=== PATIENT | male | born 1995 | race African-American/Black ===

== ENCOUNTER 2020-10-17 11:53 | Emergency (ER) | payer OTHER ==
[~2020-10-17] VITALS: Ht 185.4 cm; Wt 90.7 kg
--- NOTE | 2020-10-17 14:26 | REP ---
INDICATION: left ring finger injury/decreased vascular ultrasound technician strength COMPARISON: None. TECHNIQUE: Four views left hand. FINDINGS: There is no evidence of acute fracture, dislocation, or intrinsic bone disease. IMPRESSION: No fracture or dislocation. <Electronically signed by Indio Lundy > 10/17/20 [id number]
[2020-10-17 17:34] VITALS: BP 150/90
== END 2020-10-17 17:43 | disposition home or self-care (01) ==
LOC: M ED 11:53
DX: S63.635A Sprain of interphalangeal joint of left ring finger, initial encounter (principal); R03.0 Elevated blood-pressure reading, without diagnosis of hypertension; W23.1XXA Caught, crushed, jammed, or pinched between stationary objects, initial encounter; Y92.89 Other specified places as the place of occurrence of the external cause; Y93.62 Activity, american flag or touch football; Y99.1 Military activity

== ENCOUNTER 2020-10-23 01:44 | Emergency (ER) | payer OTHER ==
[~2020-10-23] VITALS: Ht 185.4 cm; Wt 88.0 kg
[2020-10-23 01:45] VITALS: BP 160/90
== END 2020-10-23 02:55 | disposition left against medical advice (07) ==
LOC: M ED 01:44
DX: Z53.29 Procedure and treatment not carried out because of patient's decision for other reasons (principal)

== ENCOUNTER 2020-10-24 10:18 | Inpatient (IN) | payer OTHER ==
[~2020-10-24] VITALS: Ht 185.4 cm; Wt 87.3 kg
[2020-10-24 08:45] VITALS: BP 127/44
[2020-10-24 09:45] VITALS: BP 131/76
--- NOTE | 2020-10-24 13:26 | REP ---
INDICATION: abdominal pain/possible constipation. COMPARISON: None. TECHNIQUE: Supine views the abdomen, two views. KUB. FINDINGS: Supine views the abdomen demonstrate a moderate ileus pattern in the bowel gas with air-filled dilated loops of large and small bowel throughout the upper abdomen. In addition, there is a 1.5 cm calcification in the right mid abdomen surrounded by soft tissue density. This may reflect an enterolith such as appendicular lith with appendicitis, granulomatous lymph node calcification, or a very large ureteral stone. Lastly there is the suggestion of minimal ascites. No organomegaly seen. No other pathologic calcification noted. IMPRESSION: Moderate acute ileus pattern in the bowel gas. 1.5 cm calcification in the right mid abdomen surrounded by mass effect. Suggestion of mild ascites. Acute appendicitis versus large ureteral stone versus mesenteric everardo calcification. Recommend CT study abdomen and pelvis, preferably with IV contrast. <Electronically signed by Liam Green > 10/24/20 [id number]
[2020-10-24] MEDS ORDERED: NS 1,000 ML IV ONE (13:35)
[2020-10-24 14:07] LABS: HEMATOCRIT 41.1 % (42.0-52.0); HEMOGLOBIN 13.3 g/dl (13.5-17.5); MEAN CORPUSCULAR HEMOGLOBIN 27.5 pg (27.0-33.0); MEAN CORPUSCULAR HGB CONC 32.4 g/dl (32.0-36.5); MEAN CORPUSCULAR VOLUME 85.1 fl (80.0-96.0); PLATELET COUNT, AUTOMATED 337 10^3/uL (150-450); RED BLOOD COUNT 4.83 10^6/uL (4.30-6.10); WHITE BLOOD COUNT 15.8 10^3/uL (4.0-10.0)
[2020-10-24] MEDS: GASTROGRAFIN SOLUTION 30ML PO SCH ×2 (14:24→15:00)
[2020-10-24 14:38] LABS: ATYPICAL LYMPH 1 % (0-5); LYMPHOCYTES 11 % (16-44); MONOCYTES 13 % (0-5); NEUTROPHILS 65 % (28-66); PLATELET ESTIMATE NORMAL (NORMAL)
[2020-10-24 14:39] LABS: ALBUMIN 3.1 GM/DL (3.2-5.2); ALT/SGPT 38 U/L (12-78); BILIRUBIN,DIRECT 0.1 MG/DL (0.0-0.2); BILIRUBIN,TOTAL 0.5 MG/DL (0.2-1.0); LIPASE 79 U/L (73-393); TOTAL PROTEIN 8.6 GM/DL (6.4-8.2)
[2020-10-24 15:15] LABS: BLOOD UREA NITROGEN 17 MG/DL (7-18); CALCIUM LEVEL 9.8 MG/DL (8.5-10.1); CARBON DIOXIDE LEVEL 31 MEQ/L (21-32); CHLORIDE LEVEL 95 MEQ/L (98-107); GLOMERULAR FILTRATION RATE > 60.0 (>60); GLUCOSE, FASTING 100 MG/DL (70-100); POTASSIUM SERUM 3.7 MEQ/L (3.5-5.1); SODIUM LEVEL 132 MEQ/L (136-145)
[2020-10-24] MEDS ORDERED: ISOVUE-370 76% 100ML VIAL As Ordered ONE (15:28)
--- NOTE | 2020-10-24 15:54 | REP ---
INDICATION: KUB /possible appendicitis/ileus/stone. COMPARISON: Comparison is made with abdominal plain films from earlier on this same date. TECHNIQUE: Oral contrast is administered. Helical scanning is acquired following the intravenous injection of 100 mL of Isovue 370. FINDINGS: Preliminary digital radio operator ground radiograph again demonstrates a moderate to marked diffuse abdominal ileus. On axial images, the lung bases are clear. There is no evidence of pleural effusion or upper abdominal ascites in the upper abdomen. The liver and the spleen are normal in size homogeneous in texture. No abnormality is noted in the gallbladder or the pancreas. Normal adrenal glands are seen. There is minimal delay in the nephrogram phase of the right kidney and there is mild right-sided hydronephrosis and hydroureter. Dilated small and large bowel loops are noted throughout the abdomen. There is inflammatory change in the lower small bowel mesenteric fat and there is a appendiceal abscess in the central lower abdomen. There is a large calcified appendicular lith just medial to the cecum and dilated tubular appendiceal lumen is seen coursing horizontally from right to left into the central abdomen. Above this is the appendiceal abscess. The abscess cavity contains air and fluid and measures 4.8 cm anteroposterior by 6.4 cm right to left by 3.7 cm cranial to caudal. No other abscess is seen. There is a tiny sliver of right pericolic gutter fluid. No free air is seen. The Megha appendiceal abscess is not a drainable by image guided catheter technique. It is central and surrounded by bowel. IMPRESSION: Acute appendicitis with 6.4 cm central abdominal appendiceal abscess. There is a large appendicular lith. No free air. There is moderate to marked diffuse ileus. There is mild right-sided hydronephrosis and obstructive nephrogram on the right. The right ureter is presumed to be compressed by the central abdominopelvic abscess. <Electronically signed by Liam Green > 10/24/20 [id number]
[2020-10-24] MEDS ORDERED: PIPERACILLIN/TAZOBACTAM SOD 3.375 GM in D5W MINI-BAG PLUS 50 ML IV ONE (16:25)
[2020-10-24] MEDS ORDERED: KETOROLAC 30 MG/ML 1ML VIAL IV ONE (16:45)
[2020-10-24] MEDS ORDERED: BUPIVACAINE/EPIN 0.25% 30 ML VIAL As Ordered ONE (16:58)
[2020-10-24] MEDS ORDERED: MIDAZOLAM INJ 2MG/2ML VIAL (J2250 PER 1MG) As Ordered ONE (18:07)
[2020-10-24] MEDS ORDERED: KETOROLAC 60MG 2ML VIAL As Ordered ONE (18:07)
[2020-10-24] MEDS ORDERED: fentaNYL 250 MCG/5 ML INJECTION (J3010) As Ordered ONE (18:07)
[2020-10-24] MEDS ORDERED: dexameTHASONE 4 MG/ML 1ML VIAL (J1100 PER 1MG) As Ordered ONE (18:07)
[2020-10-24] MEDS ORDERED: propofoL 200 MG/20 ML VIAL As Ordered ONE (18:07)
[2020-10-24] MEDS ORDERED: ROCURONIUM BROMIDE 50 MG/5 ML VIAL As Ordered ONE (18:07)
[2020-10-24] MEDS ORDERED: SUGAMMADEX SODIUM 500 MG/5 ML VIAL (BRIDION) As Ordered ONE (18:07)
[2020-10-24] MEDS ORDERED: LIDOCAINE 2% 100MG/5ML SDV (FOR ANES.) As Ordered ONE (18:07)
[2020-10-24] MEDS ORDERED: ONDANSETRON 4MG/2ML VIAL As Ordered ONE (18:07)
[2020-10-24] MEDS ORDERED: SUCCINYLCHOLINE 100 MG/5 ML SYRINGE (J0330) As Ordered ONE (18:15)
[2020-10-24] MEDS ORDERED: ESMOLOL INJ 100MG/10ML VIAL As Ordered ONE (18:26)
[2020-10-24] MEDS ORDERED: NORCO, ANEXSIA 5/325MG TABLET (HYDROcodone/ACETAMINOPHEN) PO PRN (18:50)
--- NOTE | 2020-10-24 19:08 | HPE ---
HISTORY AND PHYSICAL DATE OF ADMISSION: 10/24/2020 CHIEF COMPLAINT: Abdominal pain. HISTORY OF PRESENT ILLNESS: The patient is a 25-year-old male who presented with periumbilical and right upper quadrant abdominal pain that started last Friday. He thought he was constipated. He tried laxatives with minimal results. Pain has been persistent since then. He has had slight nausea, no emesis. No fevers or chills. No other recent changes. CT in the emergency room was positive for a perforated appendix with an abscess; however, the abscess was unable to be reached with percutaneous drainage; therefore, I was asked to evaluate him for surgery. Currently, in the emergency room, he just spiked a fever of 101, otherwise he has not had one prior. No prior abdominal surgeries. No trauma to the area. No other complaints. PAST MEDICAL HISTORY: Negative. PAST SURGICAL HISTORY: Negative. ALLERGIES: None. HOME MEDICATIONS: None. SOCIAL HISTORY: Denies drugs, alcohol or tobacco abuse. FAMILY HISTORY: Noncontributory. REVIEW OF SYSTEMS: Pertinent positives and negatives as stated in the history of present illness. PHYSICAL EXAMINATION: General: Alert and oriented x3, in no acute distress. Vitas: Temperature 101.5, pulse 92, respirations 18, blood pressure 166/89, pulse oximetry 100% on room air. HEENT: Pupils equal, round and reactive to light and accommodation. Heart: S1, S2, regular rate and rhythm. Lungs: Clear to auscultation bilaterally. Abdomen: Soft, tender to palpation, mainly periumbilically. Diffuse abdominal distension. No rigidity. Extremities: No clubbing, cyanosis or edema. LABORATORY: White count 15.8, hemoglobin 13.3, platelets 337, potassium 3.7, creatinine 1.3, lactic acid 0.9, C-reactive protein 21.3. IMAGING: CT abdomen and pelvis showed acute appendicitis with a 6.4 cm central abdominal abscess. Large appendicolith. No free air. Moderate diffuse ileus. ASSESSMENT AND PLAN: The patient is a young 25-year-old male currently with an acute perforated appendicitis that is not amenable to drainage by IR due to location behind some bowel loops. Recommendation is to take him to the operating room for abdominal washout, drain placement and possible appendicectomy. Risks and benefits of procedure were not limited to, but including bleeding, infection, herniated, damage to surrounding structures, need for further surgery were discussed in detail with the patient. Informed consent was obtained and procedure is planned. Postoperatively, he will be kept overnight at minimum with IV fluids and antibiotics. Once he is afebrile for 24 hours and pain and labs have improved, he will be able to be discharged home.
[2020-10-24] MEDS: ONDANSETRON 4MG/2ML VIAL IV PRN (19:24)
[2020-10-24] MEDS ORDERED: fentaNYL 100 MCG/2 ML INJECTION (J3010) IV PRN (19:50)
[2020-10-24] MEDS ORDERED: HYDROMORPHONE HCL 0.5 MG/ 0.5 ML SYRINGE (J1170 PER 1) IV PRN (19:50)
[2020-10-24] MEDS ORDERED: ONDANSETRON 4MG/2ML VIAL IV PRN (19:50)
[2020-10-24] MEDS ORDERED: oxyCODONE 5MG TAB PO PRN (19:50)
[2020-10-24] MEDS ORDERED: LR 1,000 ML IV SCH (19:50)
[2020-10-24 20:10] VITALS: BP 127/74
[2020-10-24 20:45] VITALS: BP 127/74
[2020-10-24 21:45] VITALS: BP 131/76
[2020-10-24] MEDS: SENOKOT S TAB PO SCH (22:42)
[2020-10-24] MEDS: PIPERACILLIN/TAZOBACTAM SOD 3.375 GM in D5W MINI-BAG PLUS 50 ML IV SCH (22:42)
[2020-10-24] MEDS: NS 1,000 ML IV SCH (22:43)
[2020-10-24] MEDS: KETOROLAC 30 MG/ML 1ML VIAL IV PRN (22:57)
[2020-10-24 23:00] VITALS: BP 130/76
[2020-10-25] VITALS (7 sets, daily range): BP systolic 126–149; BP diastolic 42–90
[2020-10-25] MEDS: NORCO, ANEXSIA 5/325MG TABLET (HYDROcodone/ACETAMINOPHEN) PO PRN (03:25)
[2020-10-25] MEDS: ONDANSETRON 4MG/2ML VIAL IV PRN ×2 (04:19→16:25)
[2020-10-25] MEDS: PIPERACILLIN/TAZOBACTAM SOD 3.375 GM in D5W MINI-BAG PLUS 50 ML IV SCH ×4 (05:28→22:08)
[2020-10-25] MEDS: NS 1,000 ML IV SCH ×4 (05:28→23:37)
[2020-10-25 06:13] LABS: HEMATOCRIT 38.1 % (42.0-52.0); HEMOGLOBIN 12.3 g/dl (13.5-17.5); MEAN CORPUSCULAR HEMOGLOBIN 27.2 pg (27.0-33.0); MEAN CORPUSCULAR HGB CONC 32.3 g/dl (32.0-36.5); MEAN CORPUSCULAR VOLUME 84.1 fl (80.0-96.0); PLATELET COUNT, AUTOMATED 345 10^3/uL (150-450); RED BLOOD COUNT 4.53 10^6/uL (4.30-6.10); WHITE BLOOD COUNT 13.2 10^3/uL (4.0-10.0)
[2020-10-25 06:49] LABS: BLOOD UREA NITROGEN 17 MG/DL (7-18); CALCIUM LEVEL 9.1 MG/DL (8.5-10.1); CARBON DIOXIDE LEVEL 30 MEQ/L (21-32); CHLORIDE LEVEL 99 MEQ/L (98-107); CREATININE FOR GFR 1.29 MG/DL (0.70-1.30); GLOMERULAR FILTRATION RATE > 60.0 (>60); GLUCOSE, FASTING 139 MG/DL (70-100); POTASSIUM SERUM 4.6 MEQ/L (3.5-5.1); SODIUM LEVEL 134 MEQ/L (136-145)
[2020-10-25] MEDS: SENOKOT S TAB PO SCH ×2 (09:02→22:08)
--- NOTE | 2020-10-25 12:27 | REP ---
INDICATION: NG placement. COMPARISON: None. TECHNIQUE: Single portable AP view of the chest was performed. FINDINGS: There is no acute infiltrate or pulmonary edema. Lungs are clear. The heart is not significantly enlarged. The mediastinal silhouette is unremarkable. The visualized osseous structures are intact.There is a nasogastric tube, the side port is just above the gastroesophageal junction. The tube should be advanced. The stomach is moderately dilated with air and fluid and there are adjacent mildly dilated small bowel loops. IMPRESSION: No acute pulmonary disease.There is a nasogastric tube, the side port is just above the gastroesophageal junction. The tube should be advanced. <Electronically signed by Indio Lundy > 10/25/20 [id number]
--- NOTE | 2020-10-25 13:04 | IPNPDOC ---
Text Note Date of Service The patient was seen on 10/25/20. NOTE General surgery. Dr. Mohamud The patient is a 25-year-old male admitted with acute perforated appendicitis status post laparoscopic appendectomy with drain placement 10/24/[address] Mohamud. This morning, the patient was noted to have some abdominal distention, postoperative ileus. The patient was made n.p.o., NG tube to LIS requested. Currently, the patient is resting comfortably in bed. Afebrile. Heart rate 88, respiratory rate 18, blood pressure 132/83, 95% room air. Awake and alert sitting up in bed, no acute distress S1-S2 regular rate rhythm Lungs clear to auscultation Abdomen soft, distention noted, drainage tube in place with serosanguineous drainage noted. Extremities with no edema WBC 13.2, this is compared with 15.8 yesterday. Hemoglobin 12.3 Assessment/plan Acute perforated appendicitis status post laparoscopic appendectomy with drain placement 10/24/[address] Mohamud. The patient is reviewed and examined as per Dr. Mohamud this morning. The patient is noted to have postoperative ileus. The patient is NPO, NG tube to LIS requested. Afebrile WBC 13.2 which is decreased compared with yesterday IV Zosyn IV fluids 125 cc/hr Drain in place with 180 mL drainage noted yesterday. Continue to closely monitor. VS,Fishbone, I+O VS, Fishbone, I+O Laboratory Tests 10/24/20 13:29 10/25/20 05:53 Vital Signs Date Time Temp Pulse Resp B/P (MAP) Pulse Ox O2 Delivery O2 Flow Rate FiO2 10/25/20 10:00 98.5 88 18 132/83 (99) 95 10/25/20 04:00 1.0 10/25/20 03:55 Nasal Cannula I&O- Last 24 Hours up to 6 AM 10/25/20 05:59 Intake Total 2610 ml Output Total 2112 ml Balance 498 ml Diana Macias Oct 25, 2020 13:04
[2020-10-25] MEDS: KETOROLAC 30 MG/ML 1ML VIAL IV PRN ×2 (16:26→23:47)
[2020-10-26] MEDS: PIPERACILLIN/TAZOBACTAM SOD 3.375 GM in D5W MINI-BAG PLUS 50 ML IV SCH ×4 (04:31→21:55)
[2020-10-26 06:00] VITALS: BP 136/82
[2020-10-26] MEDS: SENOKOT S TAB PO SCH ×2 (09:09→21:55)
[2020-10-26] MEDS: NS 1,000 ML IV SCH ×3 (09:09→22:05)
[2020-10-26 09:10] LABS: HEMATOCRIT 37.5 % (42.0-52.0); HEMOGLOBIN 11.9 g/dl (13.5-17.5); MEAN CORPUSCULAR HEMOGLOBIN 27.4 pg (27.0-33.0); MEAN CORPUSCULAR HGB CONC 31.7 g/dl (32.0-36.5); MEAN CORPUSCULAR VOLUME 86.4 fl (80.0-96.0); PLATELET COUNT, AUTOMATED 406 10^3/uL (150-450); RED BLOOD COUNT 4.34 10^6/uL (4.30-6.10); WHITE BLOOD COUNT 15.2 10^3/uL (4.0-10.0)
--- NOTE | 2020-10-26 09:18 | IPNPDOC ---
Text Note Date of Service The patient was seen on 10/26/20. NOTE General surgery. Dr. Mohamud The patient is a 25-year-old male admitted with acute perforated appendicitis status post laparoscopic appendectomy with drain placement 10/24/[address] Mohamud. The patient was noted to have postoperative ileus 10/25, NG tube was placed. This morning, the patient reports abdominal bloating and distention is much improved. States he has had a bowel movement. Reports flatus. Overall reports he is feeling much better. Afebrile Heart rate 87, respiratory rate 19, blood pressure 136/82, 97% room air Lungs are clear to auscultation S1-S2 regular rate rhythm Abdomen soft, still distended but less pronounced today. Some mild tenderness noted around drain site only. Drain site intact with cloudy drainage noted. 220 mL output yesterday. WBC 15.2, this is increased from 13.2 yesterday. Hemoglobin 11.9. BMP this morning pending. Blood culture x2 negative. Assessment/plan Acute perforated appendicitis status post laparoscopic appendectomy with drain placement 10/24/[address] Mohamud. The patient is reviewed and examined as per Dr. Mohamud this morning. The patient is noted to have postoperative ileus. Continue NPO, NG tube. Will check abdominal x-ray to reevaluate. Afebrile. WBC is noted to be 15.2, this is slightly increased compared with yesterday. IV Zosyn IV fluids at 125 cc/h. Drain in place with 220 mL output yesterday. Continue to monitor closely, further recommendations pending review of imaging. VS,Fishbone, I+O VS, Fishbone, I+O Laboratory Tests 10/26/20 08:48 Vital Signs Date Time Temp Pulse Resp B/P (MAP) Pulse Ox O2 Delivery O2 Flow Rate FiO2 10/26/20 06:00 98.1 87 19 136/82 (100) 97 Room Air 10/25/20 04:00 1.0 I&O- Last 24 Hours up to 6 AM 10/26/20 06:00 Intake Total 1740 ml Output Total 2240 ml Balance -500 ml Diana Macias Oct 26, 2020 09:18
[2020-10-26] MEDS: KETOROLAC 30 MG/ML 1ML VIAL IV PRN ×2 (09:23→19:05)
[2020-10-26] MEDS: ONDANSETRON 4MG/2ML VIAL IV PRN (09:24)
[2020-10-26] MEDS: NORCO, ANEXSIA 5/325MG TABLET (HYDROcodone/ACETAMINOPHEN) PO PRN (09:27)
[2020-10-26 09:45] LABS: BLOOD UREA NITROGEN 21 MG/DL (7-18); CALCIUM LEVEL 8.8 MG/DL (8.5-10.1); CARBON DIOXIDE LEVEL 31 MEQ/L (21-32); CHLORIDE LEVEL 101 MEQ/L (98-107); CREATININE FOR GFR 1.16 MG/DL (0.70-1.30); GLOMERULAR FILTRATION RATE > 60.0 (>60); GLUCOSE, FASTING 109 MG/DL (70-100); POTASSIUM SERUM 3.6 MEQ/L (3.5-5.1); SODIUM LEVEL 137 MEQ/L (136-145)
--- NOTE | 2020-10-26 10:09 | REP ---
INDICATION: ileus?. COMPARISON: Frontal view of the chest 10/25/2020 TECHNIQUE: Supine and upright views of the abdomen with frontal view of the chest FINDINGS: The frontal view the chest is unchanged from the prior exam with the exception of advancement of the nasogastric tube which is now in the region of the stomach fundus. The lung barron are clear and the pleural angles are sharp. Multiple dilated gas and fluid-filled small bowel loops are seen in the abdomen and in a stepladder fashion on the upright view. There is no evidence of free air. A small amount of radiographic contrast is seen in the descending colon. A surgical drainage tube is seen on the right. IMPRESSION: SBO versus ileus follow-up is recommended. <Electronically signed by Yogesh Chicas > 10/26/20 [id number]
[2020-10-26 14:00] VITALS: BP 137/79
[2020-10-26 21:55] VITALS: BP 136/78
[2020-10-27] MEDS: PIPERACILLIN/TAZOBACTAM SOD 3.375 GM in D5W MINI-BAG PLUS 50 ML IV SCH ×4 (04:23→22:43)
[2020-10-27] MEDS: KETOROLAC 30 MG/ML 1ML VIAL IV PRN ×3 (04:32→21:14)
[2020-10-27 05:52] VITALS: BP 137/78
[2020-10-27 07:28] LABS: HEMATOCRIT 36.8 % (42.0-52.0); HEMOGLOBIN 11.5 g/dl (13.5-17.5); MEAN CORPUSCULAR HEMOGLOBIN 27.3 pg (27.0-33.0); MEAN CORPUSCULAR HGB CONC 31.3 g/dl (32.0-36.5); MEAN CORPUSCULAR VOLUME 87.4 fl (80.0-96.0); PLATELET COUNT, AUTOMATED 453 10^3/uL (150-450); RED BLOOD COUNT 4.21 10^6/uL (4.30-6.10); WHITE BLOOD COUNT 14.8 10^3/uL (4.0-10.0)
[2020-10-27 07:54] LABS: BLOOD UREA NITROGEN 20 MG/DL (7-18); CARBON DIOXIDE LEVEL 32 MEQ/L (21-32); CHLORIDE LEVEL 102 MEQ/L (98-107); CREATININE FOR GFR 1.24 MG/DL (0.70-1.30); GLOMERULAR FILTRATION RATE > 60.0 (>60); GLUCOSE, FASTING 99 MG/DL (70-100); SODIUM LEVEL 139 MEQ/L (136-145)
--- NOTE | 2020-10-27 08:53 | IPNPDOC ---
Text Note Date of Service The patient was seen on 10/27/20. NOTE General surgery. Dr. Mohamud The patient is a 25-year-old male admitted with acute perforated appendicitis status post laparoscopic appendectomy with drain placement 10/24/[address] Mohamud. The patient was noted to have postoperative ileus 10/25, NG tube was placed. The dates he is still feeling bloated, no bowel movement reported yesterday. Patient states he is not passing flatus. Has not been out of bed yet today. Afebrile Heart rate 71, respiratory rate 20, blood pressure 137/78, 100% room air Lungs are clear to auscultation S1-S2 regular rate rhythm Abdomen soft, still with some distention. No tenderness noted. Drain site intact drainage is now clear, serous. Output not recorded yesterday. WBC 14.8, 15.2 yesterday. Hemoglobin 11.5. Blood culture x2 negative. Assessment/plan Acute perforated appendicitis status post laparoscopic appendectomy with drain placement 10/24/[address] Mohamud. The patient is noted to have postoperative ileus. Continue NPO, NG tube. Afebrile. WBC is noted to be 14.8, this is slightly increased compared with yes terday. IV Zosyn IV fluids at 125 cc/h. Drain in place with clear drainage noted now, output is not recorded yesterday Continue to monitor closely. Addendum. The patient is reviewed with Dr. Mohamud, the patient subsequently had large bowel movement this morning. Plan to clamp NG tube, trial of clear liquids. VS,Fishbone, I+O VS, Fishbone, I+O Laboratory Tests 10/27/20 07:04 Vital Signs Date Time Temp Pulse Resp B/P (MAP) Pulse Ox O2 Delivery O2 Flow Rate FiO2 10/27/20 05:52 97.0 71 20 137/78 (97) 100 Room Air 10/25/20 04:00 1.0 I&O- Last 24 Hours up to 6 AM 10/27/20 05:59 Intake Total 1565 ml Output Total 2900 ml Balance -1335 ml Diana Macias Oct 27, 2020 08:53
--- NOTE | 2020-10-27 08:55 | IPNPDOC ---
Text Note Date of Service The patient was seen on 10/27/20. NOTE No acute events overnight. He is tolerating the NG, and is still having BMS. His abd distention and pain are much improved. VSSAF NAD abd - soft, nd, NT, incisions c/d/i, drain with slightly cloudy fluid much less purulent than yesterday. labs - below A) 25y/o male s/p lap washout of perforated appendix with abscess and drain placement P) clamp NG clq diet amb in [place] plan on advancing diet and DC ng if he can tolerate diet until 5pm Ad Mohamud DO VS,Fishbone, I+O VS, Fishbone, I+O Laboratory Tests 10/27/20 07:04 Vital Signs Date Time Temp Pulse Resp B/P (MAP) Pulse Ox O2 Delivery O2 Flow Rate FiO2 10/27/20 05:52 97.0 71 20 137/78 (97) 100 Room Air 10/25/20 04:00 1.0 I&O- Last 24 Hours up to 6 AM 10/27/20 05:59 Intake Total 1565 ml Output Total 2900 ml Balance -1335 ml CORNELIUS MOHAMUD DO Oct 27, 2020 08:55
[2020-10-27] MEDS: NORCO, ANEXSIA 5/325MG TABLET (HYDROcodone/ACETAMINOPHEN) PO PRN ×2 (09:06→17:00)
[2020-10-27] MEDS: NS 1,000 ML IV SCH ×2 (09:07→15:50)
[2020-10-27] MEDS: SENOKOT S TAB PO SCH ×3 (09:07→21:01)
[2020-10-27 14:00] VITALS: BP 137/84
[2020-10-27 22:00] VITALS: BP 138/83
[2020-10-28] MEDS: PIPERACILLIN/TAZOBACTAM SOD 3.375 GM in D5W MINI-BAG PLUS 50 ML IV SCH ×4 (04:32→23:06)
[2020-10-28] MEDS: NS 1,000 ML IV SCH ×3 (05:29→15:05)
[2020-10-28 06:00] VITALS: BP 135/83
[2020-10-28] MEDS: SENOKOT S TAB PO SCH ×2 (07:34→21:08)
[2020-10-28] MEDS: KETOROLAC 30 MG/ML 1ML VIAL IV PRN ×2 (07:34→21:10)
[2020-10-28 10:08] LABS: HEMATOCRIT 38.1 % (42.0-52.0); HEMOGLOBIN 11.9 g/dl (13.5-17.5); MEAN CORPUSCULAR HEMOGLOBIN 27.2 pg (27.0-33.0); MEAN CORPUSCULAR HGB CONC 31.2 g/dl (32.0-36.5); PLATELET COUNT, AUTOMATED 485 10^3/uL (150-450); RED BLOOD COUNT 4.38 10^6/uL (4.30-6.10)
[2020-10-28 10:30] LABS: BLOOD UREA NITROGEN 13 MG/DL (7-18); CALCIUM LEVEL 9.1 MG/DL (8.5-10.1); CARBON DIOXIDE LEVEL 30 MEQ/L (21-32); CHLORIDE LEVEL 103 MEQ/L (98-107); CREATININE FOR GFR 1.14 MG/DL (0.70-1.30); GLOMERULAR FILTRATION RATE > 60.0 (>60); GLUCOSE, FASTING 103 MG/DL (70-100); POTASSIUM SERUM 3.5 MEQ/L (3.5-5.1); SODIUM LEVEL 137 MEQ/L (136-145)
[2020-10-28 14:00] VITALS: BP 135/82
[2020-10-28 22:00] VITALS: BP 139/82
--- NOTE | 2020-10-28 22:35 | IPN ---
PROGRESS NOTE DATE: 10/28/2020 HISTORY: The patient is a 25-year-old man who was admitted on the evening of the 24 of October with abdominal pain. CT scan revealed evidence for appendicitis with abscess. This was not felt to be amenable to percutaneous drainage, Dr. Mohamud took him to the [facility] where he underwent laparoscopy with placement of a drain. He has been continued on Zosyn for antibiotic coverage. He had some difficulty with an ileus but has not been advanced back to a regular diet as of last evening. He reports some discomfort in his right mid and lower abdomen in particular. He denies any nausea or vomiting currently. He has had some flatus. His abdomen remains somewhat distended. Vital signs show that he has been afebrile over the past 24 hours. His pulse is in the upper 70's to 80 and his blood pressure is good. His room air oxygen saturations are normal. Intake and output show that yesterday he had probably not the 13 liters that are recorded. I suspect this represents a typo. He had gastric drainage of 875 with 40 mL of drainage from his abdominal drain. PHYSICAL EXAMINATION: GENERAL APPEARANCE: A thin young man propped up in the bed. He is alert and oriented. HEART: Regular rate and rhythm and he is not tachycardic. LUNGS: Clear. ABDOMEN: Somewhat protuberant. He has some bowel sounds but these seem diminished. He has a drain exiting the lower mid abdomen. This has a small amount of serous fluid in the bottle with a small amount of turbid fluid in the tubing. He has another trocar site in the left upper abdomen. LABORATORY STUDIES: Today white count of 18,000 which is elevated from 15,000 yesterday. Hemoglobin is 12 with a hematocrit of 38 and the platelet count is 485,000. Chemistry profile shows a sodium of 137, potassium 3.5, chloride 103, CO2 of 30, BUN of 13, creatinine 1.1 and a glucose of 103. IMPRESSION: The patient overall appears to be doing somewhat better. His NG tube was removed last evening and he has tolerated a diet. He remains somewhat distended. His white count has gone up slightly today to 18,000 though he remains afebrile. PLAN: At this point I have decided to keep him in the hospital at least another day. His Zosyn will be continued. His labs will be repeated in the morning. If his white count continues to rise, then a repeat CT scan may be required to look for evidence of an undrained collection. MICHAEL
[2020-10-28] MEDS: ACETAMINOPHEN TAB 650MG DOSE (2X325MG) PO PRN (23:14)
[2020-10-29] MEDS: PIPERACILLIN/TAZOBACTAM SOD 3.375 GM in D5W MINI-BAG PLUS 50 ML IV SCH ×4 (05:05→23:19)
[2020-10-29 06:00] VITALS: BP 141/83
[2020-10-29] MEDS: KETOROLAC 30 MG/ML 1ML VIAL IV PRN (06:34)
[2020-10-29 07:09] LABS: BASO # 0.1 10^3/uL (0.0-0.2); BASO % 0.3 % (0.0-1.0); EOS # 0.1 10^3/uL (0.0-0.5); EOS % 0.8 % (0.0-3.0); HEMATOCRIT 36.8 % (42.0-52.0); HEMOGLOBIN 11.5 g/dl (13.5-17.5); LYMPH # 1.5 10^3/uL (1.5-5.0); LYMPH % 8.8 % (24.0-44.0); MEAN CORPUSCULAR HEMOGLOBIN 27.2 pg (27.0-33.0); MEAN CORPUSCULAR HGB CONC 31.3 g/dl (32.0-36.5); MONO # 0.8 10^3/uL (0.0-0.8); MONO % 4.5 % (2.0-8.0); NEUTROPHILS # 14.3 10^3/uL (1.5-8.5); NEUTROPHILS % 83.1 % (36.0-66.0); PLATELET COUNT, AUTOMATED 476 10^3/uL (150-450); RED BLOOD COUNT 4.23 10^6/uL (4.30-6.10); WHITE BLOOD COUNT 17.2 10^3/uL (4.0-10.0)
[2020-10-29 07:30] LABS: BLOOD UREA NITROGEN 11 MG/DL (7-18); CALCIUM LEVEL 9.3 MG/DL (8.5-10.1); CARBON DIOXIDE LEVEL 29 MEQ/L (21-32); CHLORIDE LEVEL 105 MEQ/L (98-107); CREATININE FOR GFR 1.01 MG/DL (0.70-1.30); GLOMERULAR FILTRATION RATE > 60.0 (>60); GLUCOSE, FASTING 90 MG/DL (70-100); POTASSIUM SERUM 3.9 MEQ/L (3.5-5.1); SODIUM LEVEL 139 MEQ/L (136-145)
[2020-10-29] MEDS: SENOKOT S TAB PO SCH (10:17)
[2020-10-29] MEDS: GASTROGRAFIN SOLUTION 30ML PO SCH ×2 (11:05→11:48)
[2020-10-29] MEDS ORDERED: ISOVUE-370 76% 100ML VIAL As Ordered ONE (12:50)
--- NOTE | 2020-10-29 13:56 | REP ---
INDICATION: evaluate for persistent abscess. COMPARISON: 10/24/2020. TECHNIQUE: Oral contrast was administered. CT abdomen performed without IV contrast. CT abdomen and pelvis performed with the intravenous administration of 100 cc of Isovue 370. Sagittal and coronal reconstruction images are performed. FINDINGS: Lung bases: There is a small right pleural effusion with mild adjacent dependent atelectatic change. Liver: Normal Gallbladder: Unremarkable. Spleen: Normal. Adrenals: Normal. Pancreas: Normal. Kidneys: Normal. Small and large bowel: There is significant dilatation of the stomach and jejunum with air and fluid. There appears to be a zone of transition from dilated to nondilated small bowel at the superior margin of the known abscess in the upper pelvis, along the adjacent surgical drain. Free fluid: The lobulated abscess collection is again seen at that location and has increased in size since the prior study, measuring approximately 5.8 x 5.9 x 8.6 cm. An appendicolith is again seen at the right superolateral margin of the abscess. There are surrounding streaky inflammatory changes in the mesenteric fat. Abdominal aorta: No aneurysm or dissection. Adenopathy: Multiple subcentimeter mesenteric lymph nodes are seen.. Appendix: There are findings compatible with ruptured appendicitis as discussed above. Osseous structures: Unremarkable. Pelvis: No mass. A surgical drain enters the mid pelvis and the distal tip is located in the anterior aspect of the right upper quadrant. IMPRESSION: Small right pleural effusion with mild adjacent dependent atelectatic change. There are findings suggesting small bowel obstruction in the region of the superior aspect of the abscess in the upper pelvis. The lobulated abscess collection at that location has increased in size since the prior study measuring approximately 5.8 x 5.9 x 8.6 cm. A surgical drain enters the mid pelvis, the distal tip is in the anterior aspect of the right upper quadrant. <Electronically signed by Indio Lundy > 10/29/20 [id number]
[2020-10-29 14:00] VITALS: BP 142/83
[2020-10-29] MEDS: KCL 20MEQ IN D5/0.45NS 1000ML 1,000 ML IV SCH (14:22)
[2020-10-29] MEDS: METOCLOPRAMIDE INJ 10MG/2ML VIAL (J2765 PER 1) IV SCH ×2 (14:23→20:11)
[2020-10-29] MEDS: PANTOPRAZOLE 40MG VIAL (C9113 PER 1) IV SCH (15:56)
--- NOTE | 2020-10-29 18:02 | IPN ---
PROGRESS NOTE DATE: 10/29/2020 HISTORY: Patient was admitted on October 24, 2020 with abdominal pain and distention, and CT scan showed a dilated appendix with periappendiceal abscess in the low mid-abdomen. His bowel was quite distended. He underwent laparoscopy with placement of a drain. He has remained on Zosyn. He has been attempting a diet, but has been taking fairly small amounts. He is tolerating some liquids, but reports he is belching a lot and remains quite distended. VITAL SIGNS: Show that he has been afebrile. His pulse is in the upper 60s to low 80s. Blood pressure is good and his room air saturations are normal. INTAKE AND OUTPUT: Show that yesterday he had 3090 in with no volume measurements of his output. His drain has had apparently minimal out over the last two days. He has voided at least four times, but again, the amount has not been measured. PHYSICAL EXAMINATION: GENERAL: Patient is a pleasant young man, sitting up in the hospital bed. He appears fairly comfortable. He is alert and oriented. HEART EXAM: Shows a regular rhythm. LUNGS: Clear. ABDOMEN: Remains distended. He has a small dressing in his left upper quadrant and a drain exiting his mid-abdomen that has a minimal amount of serous fluid in the tubing. The abdomen remains distended. He is tympanitic across the upper abdomen and fairly firm. EXTREMITIES: Lower extremities are without any significant edema. LABORATORY STUDIES: Include a CBC that shows that his white count remains at 17,000 with a hemoglobin of 12, hematocrit 37 and a platelet count of 476,000. His differential count shows 83% neutrophils, 9% lymphocytes and 4% monocytes. Chemistry profile shows normal electrolytes with a BUN of 11, creatinine 1 and a glucose of 90. Based on his persistent elevated white count and abdominal distention, a CT scan of the abdomen and pelvis was obtained. This shows a persistent lower mid-abdominal abscess. This, according to the radiologist, is actually increased in size from the prior study of October 24, 2020. There is a drain in the right side of the abdomen, but this is not located within the abscess. His small bowel and stomach remain quite distended with fluid and air. The radiologist suggested the possibility of an actual bowel obstruction in the area of the abscess. IMPRESSION: Patient has a persistent un-drained abscess of the lower mid-abdomen from a perforated appendicitis. Unfortunately, his drain is not in the abscess cavity. He remains quite distended. PLAN: Patient was counseled that he will likely require further surgery to drain his abscess. I will make him nothing by mouth (NPO). If he decompresses adequately, we may be able to avoid replacing his nasogastric (NG) tube. I will not reinsert this at this time. He will remain on the Zosyn. I will start him on some Protonix to decrease his gastric secretions and try a small dose of Reglan to see if this will help decompress his gastrointestinal (GI) tract somewhat. I will stop his oral pain medications and put him on morphine as needed. I will leave it to Dr. Mohamud in the morning to determine the next steps surgically. MICHAEL
[2020-10-29 22:00] VITALS: BP 141/81
[2020-10-30] VITALS (8 sets, daily range): BP systolic 132–142; BP diastolic 75–84
--- NOTE | 2020-10-30 00:44 | REPVR ---
PROCEDURE INFORMATION: Exam: XR Chest Exam date and time: 10/29/2020 11:08 PM Age: 25 years old Clinical indication: Check nasogastric tube placement TECHNIQUE: Imaging protocol: XR of the chest. Views: 1 view. COMPARISON: CR Abdomen,Flat Upright,PA CHEST 10/26/2020 9:50 AM FINDINGS: Tubes, catheters and devices: There is a nasogastric tube terminating in the proximal body of the stomach. Lungs: Unremarkable. No consolidation. No pulmonary edema. Pleural spaces: The trace right pleural effusion that can be seen in the CT abdomen and pelvis on 10/29/2020 is radiographically occult. No pneumothorax is noted. Heart/Mediastinum: Unremarkable. No cardiomegaly. Bones/joints: Unremarkable. Limited gastrointestinal tract: There is gaseous distention of the stomach. Dilated loops of small bowel are noted in the upper abdomen, which are better visualized in the CT abdomen and pelvis on 10/29/2020. IMPRESSION: 1. Nasogastric tube terminating in the proximal body of the stomach. 2. Dilated loops of small bowel in the upper abdomen, which can be seen with a small bowel obstruction or ileus. Electronically signed by: Marcial Marks On 10/30/2020 00:43:36 AM
[2020-10-30] MEDS: METOCLOPRAMIDE INJ 10MG/2ML VIAL (J2765 PER 1) IV SCH ×4 (02:42→20:38)
[2020-10-30] MEDS: KCL 20MEQ IN D5/0.45NS 1000ML 1,000 ML IV SCH ×2 (02:42→15:16)
[2020-10-30] MEDS: PIPERACILLIN/TAZOBACTAM SOD 3.375 GM in D5W MINI-BAG PLUS 50 ML IV SCH ×4 (02:42→23:02)
[2020-10-30 07:06] LABS: BASO % 0.2 % (0.0-1.0); EOS # 0.1 10^3/uL (0.0-0.5); EOS % 0.6 % (0.0-3.0); HEMATOCRIT 37.5 % (42.0-52.0); HEMOGLOBIN 11.7 g/dl (13.5-17.5); LYMPH # 1.2 10^3/uL (1.5-5.0); LYMPH % 6.8 % (24.0-44.0); MEAN CORPUSCULAR HEMOGLOBIN 27.1 pg (27.0-33.0); MEAN CORPUSCULAR HGB CONC 31.2 g/dl (32.0-36.5); MONO # 0.8 10^3/uL (0.0-0.8); MONO % 4.4 % (2.0-8.0); NEUTROPHILS # 15.1 10^3/uL (1.5-8.5); NEUTROPHILS % 85.9 % (36.0-66.0); PLATELET COUNT, AUTOMATED 466 10^3/uL (150-450); RED BLOOD COUNT 4.31 10^6/uL (4.30-6.10); WHITE BLOOD COUNT 17.6 10^3/uL (4.0-10.0)
[2020-10-30] MEDS ORDERED: propofoL 200 MG/20 ML VIAL As Ordered ONE (07:20)
[2020-10-30] MEDS ORDERED: LIDOCAINE 2% 100MG/5ML SDV (FOR ANES.) As Ordered ONE (07:20)
[2020-10-30] MEDS ORDERED: MIDAZOLAM INJ 2MG/2ML VIAL (J2250 PER 1MG) As Ordered ONE (07:20)
[2020-10-30] MEDS ORDERED: ROCURONIUM BROMIDE 50 MG/5 ML VIAL As Ordered ONE (07:20)
[2020-10-30] MEDS ORDERED: dexameTHASONE 4 MG/ML 1ML VIAL (J1100 PER 1MG) As Ordered ONE (07:20)
[2020-10-30] MEDS ORDERED: fentaNYL 250 MCG/5 ML INJECTION (J3010) As Ordered ONE (07:20)
[2020-10-30] MEDS ORDERED: oxyCODONE 5MG TAB PO PRN ×2 (07:25→09:55)
[2020-10-30] MEDS ORDERED: LR 1,000 ML IV SCH ×2 (07:25→09:55)
[2020-10-30] MEDS ORDERED: ONDANSETRON 4MG/2ML VIAL IV PRN ×2 (07:25→09:55)
[2020-10-30] MEDS ORDERED: fentaNYL 100 MCG/2 ML INJECTION (J3010) IV PRN ×2 (07:25→09:55)
[2020-10-30] MEDS ORDERED: HYDROMORPHONE HCL 0.5 MG/ 0.5 ML SYRINGE (J1170 PER 1) IV PRN ×2 (07:25→09:55)
--- NOTE | 2020-10-30 07:25 | IPNPDOC ---
Text Note Date of Service The patient was seen on 10/30/20. NOTE Over the weekend his wbc count elevated and repeat CT shows persistent abscess in the RLQ resulting in partial SBO vs. ileus. NG was replaced last evening, and plan is for OR today for washout of the abscess and new drain placement. VSSAF NAD abd - soft, slight distention, drain in place labs - below A) 25y/o male s/p lap washout of perforated appendix with abscess and drain placement P) NG IVF abx plan for repeat drain placement again today with abd washout. consent is signed no changes to H+P. Ad Mohamud DO VS,Scott, I+O VS, Kristane, I+O Laboratory Tests 10/30/20 06:45 Vital Signs Date Time Temp Pulse Resp B/P (MAP) Pulse Ox O2 Delivery O2 Flow Rate FiO2 10/30/20 06:00 98.7 74 18 142/80 (100) 96 Room Air 10/25/20 04:00 1.0 I&O- Last 24 Hours up to 6 AM 10/30/20 05:59 Intake Total 2240 ml Output Total 700 ml Balance 1540 ml CORNELIUS MOHAMUD DO Oct 30, 2020 07:24
[2020-10-30] MEDS ORDERED: ZOSYN 3.375GM VIAL (J2543) As Ordered ONE (07:27)
[2020-10-30 07:33] LABS: BLOOD UREA NITROGEN 8 MG/DL (7-18); CALCIUM LEVEL 8.9 MG/DL (8.5-10.1); CARBON DIOXIDE LEVEL 29 MEQ/L (21-32); CHLORIDE LEVEL 105 MEQ/L (98-107); CREATININE FOR GFR 1.17 MG/DL (0.70-1.30); GLOMERULAR FILTRATION RATE > 60.0 (>60); GLUCOSE, FASTING 103 MG/DL (70-100); SODIUM LEVEL 139 MEQ/L (136-145)
[2020-10-30] MEDS ORDERED: SUGAMMADEX SODIUM 500 MG/5 ML VIAL (BRIDION) As Ordered ONE (08:18)
[2020-10-30] MEDS ORDERED: HYDROmorphone HCL 2 MG/ML 1ML VIAL As Ordered ONE (08:18)
[2020-10-30] MEDS ORDERED: ACETAMINOPHEN 1000MG 100ML IV BTL (OFIRMEV) (J0131 PER 10MG) As Ordered ONE (08:18)
[2020-10-30] MEDS ORDERED: LACRILUBE (AKWA TEARS) OPHTH OINT 3.5 GM As Ordered ONE (08:27)
[2020-10-30] MEDS ORDERED: KETOROLAC 60MG 2ML VIAL As Ordered ONE (08:33)
[2020-10-30] MEDS ORDERED: ONDANSETRON 4MG/2ML VIAL As Ordered ONE (08:33)
[2020-10-30] MEDS ORDERED: LABETALOL 100MG/20ML VIAL As Ordered ONE (08:37)
[2020-10-30] MEDS: PANTOPRAZOLE 40MG VIAL (C9113 PER 1) IV SCH (09:00)
[2020-10-30] MEDS ORDERED: BUPIVACAINE/EPIN 0.25% 30 ML VIAL As Ordered ONE (09:16)
--- NOTE | 2020-10-30 09:33 | RO ---
OPERATIVE NOTE DATE OF OPERATION: 10/30/2020 PREOPERATIVE DIAGNOSIS: Perforated appendicitis with peritoneal abscess. POSTOPERATIVE DIAGNOSIS: Perforated appendicitis with peritoneal abscess. PROCEDURE: Robotic-assisted diagnostic laparoscopy with release of abdominal adhesions, abdominal washout and drain placement. SURGEON: Indio Mohamud DO RETAIL CUSTOMER SERVICE REPRESENTATIVE: BRUCE Henriquez ANESTHESIA: General. ESTIMATED BLOOD LOSS: 10 ml COMPLICATIONS: None. INDICATIONS FOR PROCEDURE: The patient is a 25-year-old male who presented with a complicated perforated appendix with a walled off abscess a week ago. He underwent a diagnostic laparoscopy with a washout and drain placement then. He started to do well over a few days. However, he started to get worse again with increasing pain, ileus and decreased output. Repeat imaging this weekend revealed that his abscess had recurred. Plan was to take him back today for washout again and placement of another drain. Risks and benefits of the procedure not limited to but including bleeding, infection, hernias, damage to surrounding structures, need for further surgery were discussed in detail with the patient. Informed consent was obtained and procedure is planned. DESCRIPTION OF PROCEDURE: The patient was brought back to operating room 7. After sufficient sedation, the abdomen was sterilely prepped and draped. Next, a timeout was done to confirm proper patient and proper procedure. Following that, the original left upper quadrant incision from previous surgery was reopened and an 8 mm OptiView port was used to gain access to the abdomen. Once the abdomen was entered, two more ports were placed, one in the left mid-abdomen, one in the right upper quadrant. Next, the robot was docked to the ports. Once inside, the small bowel adhesions to the abdominal wall and the pelvis were gently released using blunt dissection. Once the abscess cavity was reached just medial to the cecum, a large amount of purulent fluid was encountered. This was all aspirated out using a suction hotel operations manager. Once that was completed, I continued to mobilize around the cecum, however, could not definitively identify the appendix due to being extensively inflamed. Because of that, a 19 Romansh drain was then taken. It was placed just medial to the cecum in this abscess cavity, brought out through the previous incision in the suprapubic area. The abdomen was then desufflated slowly, making sure that the drain did not move while the loops of small bowel came over top of it. Once that was completed, the drain was sutured in place with a 2-0 silk. The skin incision was closed with 4-0 Vicryl subcuticular sutures. The abdomen was cleaned and dried. Steri-Strips, 4x4 and tape were applied.
[2020-10-31] MEDS: METOCLOPRAMIDE INJ 10MG/2ML VIAL (J2765 PER 1) IV SCH ×4 (02:09→19:43)
[2020-10-31] MEDS: ACETAMINOPHEN TAB 650MG DOSE (2X325MG) PO PRN (02:23)
[2020-10-31] MEDS: KCL 20MEQ IN D5/0.45NS 1000ML 1,000 ML IV SCH ×2 (04:19→17:14)
[2020-10-31] MEDS: PIPERACILLIN/TAZOBACTAM SOD 3.375 GM in D5W MINI-BAG PLUS 50 ML IV SCH ×4 (04:19→23:23)
[2020-10-31 06:09] VITALS: BP 131/78
[2020-10-31 06:20] LABS: HEMATOCRIT 37.2 % (42.0-52.0); HEMOGLOBIN 11.8 g/dl (13.5-17.5); MEAN CORPUSCULAR HEMOGLOBIN 27.3 pg (27.0-33.0); MEAN CORPUSCULAR HGB CONC 31.7 g/dl (32.0-36.5); MEAN CORPUSCULAR VOLUME 86.1 fl (80.0-96.0); PLATELET COUNT, AUTOMATED 518 10^3/uL (150-450); RED BLOOD COUNT 4.32 10^6/uL (4.30-6.10); WHITE BLOOD COUNT 13.1 10^3/uL (4.0-10.0)
[2020-10-31 06:47] LABS: BLOOD UREA NITROGEN 12 MG/DL (7-18); CALCIUM LEVEL 8.9 MG/DL (8.5-10.1); CARBON DIOXIDE LEVEL 31 MEQ/L (21-32); CHLORIDE LEVEL 104 MEQ/L (98-107); CREATININE FOR GFR 1.22 MG/DL (0.70-1.30); GLOMERULAR FILTRATION RATE > 60.0 (>60); GLUCOSE, FASTING 101 MG/DL (70-100); POTASSIUM SERUM 4.5 MEQ/L (3.5-5.1); SODIUM LEVEL 140 MEQ/L (136-145)
[2020-10-31] MEDS: PANTOPRAZOLE 40MG VIAL (C9113 PER 1) IV SCH (08:29)
--- NOTE | 2020-10-31 09:09 | IPNPDOC ---
Text Note Date of Service The patient was seen on 10/31/20. NOTE General surgery. Dr. Mohamud The patient is a 25-year-old male admitted with acute perforated appendicitis status post laparoscopic appendectomy with drain placement 10/24/[address] Mohamud. The patient was noted to have recurrence of abscess, status post robotic assisted diagnostic laparoscopy with release of adhesions, abdominal washout and drain placement as per Dr. Mohamud 10/30/2020. The patient is resting in bed. States pain is controlled. NG tube in place. Denies flatus or BM. Has not been out of bed yet. Afebrile. VSS. NG tube in place Lungs clear to auscultation S1-S2 regular rate rhythm Abdomen with surgical incisions clean/dry/intact. STEF drain in place with small amount of serosanguineous drainage noted. Soft, distended, mild tenderness around incision sites. No edema WBC 13.1, this is decreased from 17.6. Hemoglobin 11.8. NG tube output 525 mL yesterday, 650 mL so far today. STEF drain 220 mL yesterday, 30 mL today. Assessment/plan Acute perforated appendicitis status post laparoscopic appendectomy with drain placement 10/24/[address] Mohamud. The patient was noted to have recurrence of abscess, status post robotic assisted diagnostic laparoscopy with release of adhesions, abdominal washout and drain placement as per Dr. Mohamud 10/30/2020. The patient reports pain is controlled. WBC trending downward. NG tube in place IV Zosyn IV fluids 80 cc/h. Continue to monitor VS,Fishbone, I+O VS, Fishbone, I+O Laboratory Tests 10/31/20 05:49 Vital Signs Date Time Temp Pulse Resp B/P (MAP) Pulse Ox O2 Delivery O2 Flow Rate FiO2 10/31/20 06:09 97.6 72 20 131/78 (95) 96 Room Air 10/30/20 20:00 2.0 I&O- Last 24 Hours up to 6 AM 10/31/20 06:00 Intake Total 2550 ml Output Total 3640 ml Balance -1090 ml Diana Macias Oct 31, 2020 09:09
[2020-10-31 14:00] VITALS: BP 131/77
[2020-10-31] MEDS: MORPHINE 2 MG/ML 1ML VIAL (J2270) IV PRN (20:00)
[2020-10-31 20:15] VITALS: BP 131/77
[2020-10-31 22:15] VITALS: BP 132/77
[2020-10-31 23:32] VITALS: BP 132/72
[2020-11-01] MEDS: METOCLOPRAMIDE INJ 10MG/2ML VIAL (J2765 PER 1) IV SCH ×4 (02:03→21:35)
[2020-11-01] MEDS: PIPERACILLIN/TAZOBACTAM SOD 3.375 GM in D5W MINI-BAG PLUS 50 ML IV SCH ×4 (04:17→21:36)
[2020-11-01 06:42] LABS: HEMATOCRIT 38.7 % (42.0-52.0); PLATELET COUNT, AUTOMATED 559 10^3/uL (150-450); RED BLOOD COUNT 4.45 10^6/uL (4.30-6.10); WHITE BLOOD COUNT 12.6 10^3/uL (4.0-10.0)
[2020-11-01 06:46] VITALS: BP 130/79
[2020-11-01] MEDS: KCL 20MEQ IN D5/0.45NS 1000ML 1,000 ML IV SCH ×2 (09:38→16:33)
[2020-11-01] MEDS: PANTOPRAZOLE 40MG VIAL (C9113 PER 1) IV SCH (09:38)
--- NOTE | 2020-11-01 10:14 | IPNPDOC ---
Text Note Date of Service The patient was seen on 11/01/20. NOTE No acute events overnight. He has been ambulating in the halls, but no flatus or BM yet. No problems with nausea or emesis with the NG in. NG output is still bilious. VSSAF NAD abd - soft, distention improved, drain in place serosanguinous labs - below A) 25y/o male s/p lap washout of perforated appendix with abscess and drain placement P) NG IVF abx ambulate in [place], we will advance diet and clamp NG once he is passing flatus. Ad Mohamud DO VS,Fishbone, I+O VS, Fishbone, I+O Laboratory Tests 11/01/20 06:24 Vital Signs Date Time Temp Pulse Resp B/P (MAP) Pulse Ox O2 Delivery O2 Flow Rate FiO2 11/01/20 06:46 97.4 80 19 130/79 (96) 94 Room Air 10/30/20 20:00 2.0 I&O- Last 24 Hours up to 6 AM 11/01/20 06:00 Intake Total 1220 ml Output Total 2060 ml Balance -840 ml CORNELIUS MOHAMUD DO Nov 01, 2020 10:14
[2020-11-01 14:00] VITALS: BP 134/77
[2020-11-01] MEDS: MORPHINE 2 MG/ML 1ML VIAL (J2270) IV PRN (22:17)
[2020-11-02] MEDS: KCL 20MEQ IN D5/0.45NS 1000ML 1,000 ML IV SCH ×2 (00:24→17:47)
[2020-11-02 00:36] VITALS: BP 145/94
[2020-11-02] MEDS: METOCLOPRAMIDE INJ 10MG/2ML VIAL (J2765 PER 1) IV SCH ×4 (02:29→21:35)
[2020-11-02] MEDS: PIPERACILLIN/TAZOBACTAM SOD 3.375 GM in D5W MINI-BAG PLUS 50 ML IV SCH ×4 (04:26→21:43)
[2020-11-02 06:00] VITALS: BP 127/80
[2020-11-02 06:26] LABS: HEMATOCRIT 39.8 % (42.0-52.0); HEMOGLOBIN 12.3 g/dl (13.5-17.5); MEAN CORPUSCULAR HEMOGLOBIN 26.7 pg (27.0-33.0); MEAN CORPUSCULAR HGB CONC 30.9 g/dl (32.0-36.5); MEAN CORPUSCULAR VOLUME 86.3 fl (80.0-96.0); PLATELET COUNT, AUTOMATED 579 10^3/uL (150-450); RED BLOOD COUNT 4.61 10^6/uL (4.30-6.10); WHITE BLOOD COUNT 9.9 10^3/uL (4.0-10.0)
--- NOTE | 2020-11-02 08:27 | IPNPDOC ---
Text Note Date of Service The patient was seen on 11/02/20. NOTE General surgery. Dr. Mohamud The patient is a 25-year-old male admitted with acute perforated appendicitis status post laparoscopic appendectomy with drain placement 10/24/[address] Mohamud. The patient was noted to have recurrence of abscess, status post robotic assisted diagnostic laparoscopy with release of adhesions, abdominal washout and drain placement as per Dr. Mohamud 10/30/2020. The patient is resting in bed. States pain is controlled. NG tube in place. Denies flatus. No BM documented. Afebrile. VSS. NG tube in place Lungs clear to auscultation S1-S2 regular rate rhythm Abdomen with surgical incisions clean/dry/intact. STEF drain in place with small amount of serosanguineous drainage noted. Soft, distended, mild tenderness around incision sites. No edema WBC 9.9, continued downward trend. NG tube output 1000 mL yesterday, 350 mL so far today. STEF drain output not documented yesterday. 20 mL documented today. Assessment/plan Acute perforated appendicitis status post laparoscopic appendectomy with drain placement 10/24/[address] Mohamud. The patient was noted to have recurrence of abscess, status post robotic assisted diagnostic laparoscopy with release of adhesions, abdominal washout and drain placement as per Dr. Mohamud 10/30/2020. The pt is reviewed and examined as per Dr Skaggs today. The patient reports pain is controlled. WBC continue to trend downward. The patient denies flatus, has not had BM. NG tube in place IV Zosyn IV fluids 80 cc/h. AXR pending. Encourage out of bed and ambulation Continue to monitor VS,Fishbone, I+O VS, Fishbone, I+O Laboratory Tests 11/02/20 06:05 Vital Signs Date Time Temp Pulse Resp B/P (MAP) Pulse Ox O2 Delivery O2 Flow Rate FiO2 11/02/20 06:00 97.8 69 18 127/80 (96) 97 Room Air 10/30/20 20:00 2.0 I&O- Last 24 Hours up to 6 AM 11/02/20 06:00 Intake Total 1930 ml Output Total 2270 ml Balance -340 ml Attending Note Attending Note Patient reports feeling mildly better, the abdomen feels flatter. No nausea or vomiting though no flatus yet. He drinks nearly a liter for the past 24 hours from the nasogastric tube. He reports he had 1 small bowel movement yesterday. Still moderately distended, tympanic, relatively quiet. Nontender on palpation. Drainage tube has serosanguineous drainage. Plan: I will get a abdominal x-ray to gauge degree of distention of the small bowel relative to the colon. We will try to clamp the tube and see how he does. Encouraged to ambulate. Diana Macias Nov 02, 2020 08:27 STEPHEN SKAGGS MD Nov 02, 2020 12:46
[2020-11-02] MEDS: PANTOPRAZOLE 40MG VIAL (C9113 PER 1) IV SCH (09:23)
[2020-11-02 14:00] VITALS: BP 130/81
--- NOTE | 2020-11-02 17:25 | REP ---
INDICATION: ffup sbo. COMPARISON: Radiograph 10/26/2020. CT 10/29/2020. TECHNIQUE: Two AP views abdomen and pelvis. FINDINGS: Surgical drain is seen with the tip is now near the midline of the lower abdomen. Multiple moderately dilated small bowel loops are seen throughout the abdomen, as seen on the recent CT scan. There is a small amount of contrast in nondistended right colon. A nasogastric tube is seen with side port in the region of the stomach. There is also small amount of contrast in the collapsed rectum. IMPRESSION: Nasogastric tube with side port in the region of the stomach, surgical drain with tip in the lower abdomen near the midline. There are multiple persistent moderately dilated small bowel loops. <Electronically signed by Indio Lundy > 11/02/20 8026
[2020-11-02 20:06] VITALS: BP 144/95
[2020-11-02] MEDS: MORPHINE 2 MG/ML 1ML VIAL (J2270) IV PRN (21:36)
[2020-11-02 22:00] VITALS: BP 144/95
[2020-11-03] MEDS: METOCLOPRAMIDE INJ 10MG/2ML VIAL (J2765 PER 1) IV SCH ×4 (02:16→20:06)
[2020-11-03] MEDS: PIPERACILLIN/TAZOBACTAM SOD 3.375 GM in D5W MINI-BAG PLUS 50 ML IV SCH ×4 (04:18→22:16)
[2020-11-03] MEDS: MORPHINE 2 MG/ML 1ML VIAL (J2270) IV PRN (04:23)
[2020-11-03 06:00] VITALS: BP 136/84
[2020-11-03] MEDS: KCL 20MEQ IN D5/0.45NS 1000ML 1,000 ML IV SCH ×2 (06:09→15:55)
[2020-11-03 06:43] LABS: HEMATOCRIT 41.2 % (42.0-52.0); HEMOGLOBIN 13.1 g/dl (13.5-17.5); MEAN CORPUSCULAR HEMOGLOBIN 27.4 pg (27.0-33.0); MEAN CORPUSCULAR HGB CONC 31.8 g/dl (32.0-36.5); MEAN CORPUSCULAR VOLUME 86.2 fl (80.0-96.0); PLATELET COUNT, AUTOMATED 649 10^3/uL (150-450); RED BLOOD COUNT 4.78 10^6/uL (4.30-6.10); WHITE BLOOD COUNT 7.4 10^3/uL (4.0-10.0)
[2020-11-03] MEDS: PANTOPRAZOLE 40MG VIAL (C9113 PER 1) IV SCH (08:22)
--- NOTE | 2020-11-03 09:43 | IPNPDOC ---
Text Note Date of Service The patient was seen on 11/03/20. NOTE General surgery. Dr. Mohamud The patient is a 25-year-old male admitted with acute perforated appendicitis status post laparoscopic appendectomy with drain placement 10/24/[address] Mohamud. The patient was noted to have recurrence of abscess, status post robotic assisted diagnostic laparoscopy with release of adhesions, abdominal washout and drain placement as per Dr. Mohamud 10/30/2020. The patient is resting in bed. States pain is controlled. NG tube clamped since yesterday AM. Denies flatus or BM. Denies Nausea/vomiting. Afebrile. VSS. NG tube in place Lungs clear to auscultation S1-S2 regular rate rhythm Abdomen with surgical incisions clean/dry/intact. STEF drain in place with small amount of serosanguineous drainage noted. Soft, distended, mild tenderness around incision sites. No edema WBC 7.4, continued downward trend. NG tube clamped STEF drain output 20ml yesterday. 7 mL today. Assessment/plan Acute perforated appendicitis status post laparoscopic appendectomy with drain placement 10/24/[address] Mohamud. The patient was noted to have recurrence of abscess, status post robotic assisted diagnostic laparoscopy with release of adhesions, abdominal washout and drain placement as per Dr. Mohamud 10/30/2020. The pt is reviewed and examined as per Dr Mohamud. The patient reports pain is controlled. WBC continue to trend downward. The patient denies flatus, has not had BM. tolerated NGT clamping since yesterday AM. IV Zosyn IV fluids 80 cc/h. AXR yesterday still with dilated loops. Encourage out of bed and ambulation trial of clear liquids today, if tolerating clears DC NGT later this afternoon. Continue to monitor VS,Fishbone, I+O VS, Fishbone, I+O Laboratory Tests 11/03/20 06:18 Vital Signs Date Time Temp Pulse Resp B/P (MAP) Pulse Ox O2 Delivery O2 Flow Rate FiO2 11/03/20 06:00 97.5 61 16 136/84 (101) 98 Room Air 10/30/20 20:00 2.0 I&O- Last 24 Hours up to 6 AM 11/03/20 05:59 Intake Total 880 ml Output Total 1350 ml Balance -470 ml Diana Macias Nov 03, 2020 09:43
[2020-11-03 14:00] VITALS: BP 133/85
[2020-11-03] MEDS ORDERED: SIMETHICONE 80MG CHEW TAB PO PRN (17:55)
[2020-11-03] MEDS ORDERED: DICYCLOMINE 10 MG CAP PO PRN (17:55)
[2020-11-03 19:57] VITALS: BP 143/89
[2020-11-04] MEDS: ACETAMINOPHEN TAB 650MG DOSE (2X325MG) PO PRN (01:09)
[2020-11-04] MEDS: METOCLOPRAMIDE INJ 10MG/2ML VIAL (J2765 PER 1) IV SCH ×4 (01:49→20:38)
[2020-11-04] MEDS: PIPERACILLIN/TAZOBACTAM SOD 3.375 GM in D5W MINI-BAG PLUS 50 ML IV SCH ×4 (04:18→22:59)
[2020-11-04 05:23] VITALS: BP 137/86
[2020-11-04] MEDS ORDERED: PILL CUTTER 1 EACH XX PRN (08:35)
[2020-11-04 08:37] LABS: HEMATOCRIT 40.9 % (42.0-52.0); HEMOGLOBIN 12.8 g/dl (13.5-17.5); MEAN CORPUSCULAR HEMOGLOBIN 26.7 pg (27.0-33.0); MEAN CORPUSCULAR HGB CONC 31.3 g/dl (32.0-36.5); MEAN CORPUSCULAR VOLUME 85.2 fl (80.0-96.0); PLATELET COUNT, AUTOMATED 696 10^3/uL (150-450); WHITE BLOOD COUNT 7.2 10^3/uL (4.0-10.0)
[2020-11-04] MEDS: KCL 20MEQ IN D5/0.45NS 1000ML 1,000 ML IV SCH ×2 (09:00→20:39)
[2020-11-04] MEDS: SIMETHICONE 80MG CHEW TAB PO SCH ×4 (09:07→20:38)
[2020-11-04] MEDS: PANTOPRAZOLE 40MG VIAL (C9113 PER 1) IV SCH (09:07)
--- NOTE | 2020-11-04 09:36 | IPN ---
PROGRESS NOTE DATE: 11/04/2020 SUBJECTIVE: The patient is status post draining of a periappendiceal abscess/pelvic abscess and has been afebrile over the last 24 hours. His drain has been putting out minimal drainage. It is serosanguineous but a little bit on the dark side, probably old blood and from a laboratory standpoint he continues to be within normal white count range. Overall he states that he has been having bowel movements and some flatus this morning but still feels distended. OBJECTIVE: He is tensely distended, tympanitic without guarding, without rebound. He has been tolerating some clear liquids this morning. ASSESSMENT AND PLAN: The patient still has somewhat of an ileus associated with his infectious process and inflammation appreciated associated with this. Thus at this point I would recommend that we keep him on clear liquids. We will increase his activity and since he is not really taking a lot of liquids in, we will keep his IV fluids going. We will see how things go over the next 24 hours but otherwise continue with the current treatment as planned.
[2020-11-04 14:00] VITALS: BP 136/85
[2020-11-04 22:00] VITALS: BP 137/86
[2020-11-05] MEDS: METOCLOPRAMIDE INJ 10MG/2ML VIAL (J2765 PER 1) IV SCH ×2 (02:14→08:35)
[2020-11-05] MEDS: PIPERACILLIN/TAZOBACTAM SOD 3.375 GM in D5W MINI-BAG PLUS 50 ML IV SCH ×2 (04:07→10:37)
[2020-11-05] MEDS: KCL 20MEQ IN D5/0.45NS 1000ML 1,000 ML IV SCH (04:07)
[2020-11-05 06:00] VITALS: BP 134/86
[2020-11-05 07:48] LABS: HEMATOCRIT 39.5 % (42.0-52.0); HEMOGLOBIN 12.6 g/dl (13.5-17.5); MEAN CORPUSCULAR HGB CONC 31.9 g/dl (32.0-36.5); MEAN CORPUSCULAR VOLUME 84.8 fl (80.0-96.0); PLATELET COUNT, AUTOMATED 681 10^3/uL (150-450); RED BLOOD COUNT 4.66 10^6/uL (4.30-6.10); WHITE BLOOD COUNT 7.6 10^3/uL (4.0-10.0)
[2020-11-05] MEDS: SIMETHICONE 80MG CHEW TAB PO SCH (08:35)
[2020-11-05] MEDS: PANTOPRAZOLE 40MG VIAL (C9113 PER 1) IV SCH (08:35)
[2020-11-05] MEDS ORDERED: AUGM875T28 PO (09:25)
--- NOTE | 2020-11-06 12:05 | DSES ---
DISCHARGE SUMMARY DATE OF ADMISSION: 10/24/2020 DATE OF DISCHARGE: 11/05/2020 ADMISSION DIAGNOSIS: Ruptured appendicitis. DISCHARGE DIAGNOSIS: Ruptured appendicitis. HOSPITAL COURSE: The patient is a 25-year-old male who presented to the hospital with abdominal pain for a few days, found to have perforated appendix with walled off abscess on CT. Due to pain and elevated white count plan was to take him to the operating room for washout and drain placement. He was not a candidate for IR drainage due to the location of the abscess being posterior to some small bowel. He was brought to the operating room on . He had abdominal washout and drain placed. Postoperatively he did well. His white count did improve for about three days but then it started to go back up again. He was tolerating diet during that time, having some slight flatus. However, then he started having increased abdominal distention again. He then had repeat CT scan done on the showing that he had recurrence of this abscess. On the morning of the he was brought back to the operating room for repeat abdominal washout and manipulation of the drain back into the abscess cavity that it had fallen out of. There was again a large fluid collection of purulent fluid there that was washed out during the procedure and the drain was repositioned. Postop from that procedure he continued to have ileus for a few days. After postop day three the NG tube was clamped and he was started on clear liquids. On the 4th postop day he tolerated that and the NG tube was removed. By postop day five from his second procedure his diet was slowly advanced and then on the he was discharged home. DISCHARGE MEDICATIONS: He was sent home with PO antibiotics. He did not require any pain control upon discharge. His drain was also removed prior to discharge. He will follow up with us in the office in a couple of weeks with further recommendations to follow. Likely plan on elective robotic appendectomy at least 6-8 weeks from now. MICHAEL
--- NOTE | 2020-11-09 10:25 | RO ---
OPERATIVE NOTE DATE OF OPERATION: 10/24/2020 PREOPERATIVE DIAGNOSIS: Ruptured appendicitis. POSTOPERATIVE DIAGNOSIS: Ruptured appendicitis. PROCEDURE: Diagnostic laparoscopy with abdominal washout. Abscess drainage and drain placement. SURGEON: Indio Mohamud DO ECHOCARDIOGRAPHY TECH: None. ANESTHESIA: General. ESTIMATED BLOOD LOSS: 5. COMPLICATIONS: None. INDICATION FOR PROCEDURE: The patient is a 25-year-old male who presented to the hospital on the 7th with abdominal pains for over a week, found to have ruptured appendix with a walled off abscess on CAT scan. This abscess was unable to be drained by percutaneous drainage; therefore recommendation was to proceed with operative intervention. Risks and benefits of the procedure were not limited to, but included bleeding, infection, hernias, damage to surrounding structures and need for further surgery is discussed in details with the patient and informed consent was obtained and procedure was planned. DESCRIPTION OF PROCEDURE: The patient was brought back to operating room. After sufficient sedation, the abdomen was sterilely prepped and draped. Next, time-out was done to confirm proper patient and proper procedure. Following that, an 8 mm incision was made in the left upper quadrant. Veress needle inserted and the abdomen was insufflated to 50 mmHg. The Veress needle was then removed and a 5 mm Optiview port was used to gain access to the abdomen. Once the abdomen was entered, there were multiple dilated loops of small bowel. I was able to get over top of these, look down into the pelvis and place another suprapubic midline 5 mm port. From there, I was able to gently mobilize the small bowel out of the pelvis, away from the abscess and enter the abscess cavity. The abscess cavity was aspirated out. I was able to fully irrigate and wash out that area. The medial cecum and terminal ileum were all acutely and severely inflamed. There was significant inflammation in that area. Therefore removal of the appendix itself was unable to be obtained at this time. The area was fully washed out and a 19 German Hari drain was placed inside the abscess cavity and brought out through the suprapubic port site and sutured to the skin with a 2-0 silk suture. The abdomen was then desulflated. The other port was removed. Skin incisions were closed with 4-0 Vicryl subcuticular sutures. Incisions were covered with tape and gauze. The patient was awakened from anesthesia and sent to the PACU in stable condition.
--- NOTE | 2020-11-09 12:39 | RO ---
OPERATIVE NOTE DATE OF OPERATION: 10/24/2020 PREOPERATIVE DIAGNOSIS: Acute ruptured appendicitis. POSTOPERATIVE DIAGNOSIS: Acute ruptured appendicitis. PROCEDURES: Exploratory laparoscopy with abdominal washout and drain placement. SURGEON: Indio Mohamud DO ASSAYER: None. ANESTHESIA: General. ESTIMATED BLOOD LOSS: 2 mL. COMPLICATIONS: None. INDICATIONS FOR PROCEDURE: The patient is a 25-year-old male who presents with abdominal pain for a week and was found to have a walled off abscess on CT. Drainage was not amenable to IR drain secondary to being posterior to loops of small bowel. Because of this, the recommendation was to proceed with exploratory surgery and a possible appendectomy. Risks and benefits of the procedure, not limited to, but including bleeding, infection, hernia, damage to surrounding structures, and need for further surgery were discussed in detail with the patient. Informed consent was obtained and the procedure was planned. PROCEDURE: The patient was brought back to operating room #1. After successful sedation, the abdomen was sterilely prepped and draped. Next, a time-out was done to confirm the proper patient and proper procedure. Following that, a 5-mm incision was made in the left upper quadrant. Veress needle was inserted and the abdomen was insufflated to 15 mmHg. The Veress needle was then removed and a 5-mm Optiview port was used to gain access to the abdomen. Once the abdomen was entered, there were multiple dilated loops of small and large bowel, making it difficult to see the appendix. I was able to place another 5-mm port suprapubically in the midline. After moving the small bowel loops out of the right lower quadrant, this revealed a large pocket of purulent fluid. This fluid was all aspirated out. The cecum was densely adhered to the posterior abdomen. The terminal ileum was adhered to the abdomen and the appendix was completely obliterated in this area. The inflammation involved the cecum. Because of this, it was not safe to remove just the appendix without doing a partial bowel resection. Because of that, I left a drain in place. I washed out the area. The abdomen was then desufflated. The drain was sutured in place with a 3-0 silk suture. The left upper quadrant incision was closed with 4-0 Vicryl sutures subcuticular sutures. Steri-Strips and 4x4 and tape were applied. MTDD
== END 2020-11-05 12:20 | disposition home or self-care (01) | DRG 340 ==
LOC: M ED 10:18 → M SDC 17:06 → M MS5PR 20:23 → M SDC 10-25 07:30 → M MS5PR 10-25 07:31
PROVIDERS: ADMIT Surgery; ATTEND Surgery
PROC: 0D9J40Z Drainage of Appendix with Drainage Device, Percutaneous Endoscopic Approach (ICD-10-PCS; 2020-10-25)
PROC: 8E0W4CZ Robotic Assisted Procedure of Trunk Region, Percutaneous Endoscopic Approach (ICD-10-PCS; 2020-10-30)
PROC: 0DTJ4ZZ Resection of Appendix, Percutaneous Endoscopic Approach (ICD-10-PCS; principal; 2020-10-30 07:30)
DX: K35.33 Acute appendicitis with perforation, localized peritonitis, and gangrene, with abscess (principal); Z20.822 Contact with and (suspected) exposure to COVID-19

== ENCOUNTER → 2020-12-19 | Outpatient (CLI) | payer OTHER ==
[~2020-12-19] MED LIST: AUGM875T28 PO; GASTROGRAFIN SOLUTION 30ML (Q9963) As Ordered ONE; ISOVUE-370 76% 100ML VIAL As Ordered ONE
--- NOTE | 2020-12-19 12:21 | REP ---
INDICATION: ACUTE APPENDICITIS WITH PERF AND LOC PERITONITIS. COMPARISON: CT 10/29/2020 TECHNIQUE: Oral Gastrografin mixture 10 mL in 290 mL flavum water for 2 doses per our bowel contrast protocol bolus 60 mL Isovue 370 scanning through the abdomen and pelvis with coronal and sagittal reconstructions. FINDINGS: CT abdomen: Lung bases are clear heart is not enlarged. There is no pericardial thickening or effusion. No hiatal hernia. Liver, gallbladder, spleen, pancreas and adrenal glands are unremarkable. Kidneys show symmetric enhancement without mass, hydronephrosis, stone or cyst. The aorta is without aneurysm no periaortic lymphadenopathy. Scattered small mesenteric nodes are seen which I would regard is unremarkable. Lung window review of all CT slices in the abdomen and pelvis shows no evidence of perforation or free air. No pneumatosis. Colon shows scattered stool gas and is without dilatation small bowel loop caliber is normal with contrast within. Previously noted small bowel obstruction is resolved. The stomach is a gas filled but without suggestion of obstruction as on the previous study. Complex abscess noted on the previous study appears resolved. Surgical drain on that prior CT is removed. Adjacent sigmoid and small bowel loops are without dilatation. No ascites or any loculated collection in the abdomen. No periaortic, other retroperitoneal or mesenteric pathologic sized lymphadenopathy. 10 mm calcification best seen on image 85 axial and 37 coronal and is suggestive of a fecalith. This is the same 1 seen on previous study adjacent to the abscess. Could be in the appendiceal stump or adjacent cecal wall. Bone windows show spine and visualized ribs unremarkable. CT pelvis: Sacrum, SI joints pelvis and hips were unremarkable a distal small bowel loops with oral contrast throughout. None of the contrast reaches the cecum but is seen in the distal ileum and terminal ileum. No dilated loops. The distal left colon sigmoid and rectum with stool and gas but no inflammatory change. No peripelvic free fluid. Bladder without wall thickening mass or stone. No dilated distal ureters or ureteral/bladder stone. See no ventral or inguinal hernia nor pathologic sized inguinal adenopathy. IMPRESSION: 1. Interval resolution of prominent lobulated the pelvic abscess and removal of surgical drain since prior study 10/29/2020. A a 10 mm fecalith is noted and unchanged in position either within the appendiceal stump or cecal wall. 2. No bowel obstruction, ileus, ascites, adenopathy, mass or free air. 3. No other significant or acute finding. <Electronically signed by Guillermo Leong > 12/19/20 3340
== END ==
LOC: M RAD 07:42
PROVIDERS: ATTEND Surgery
DX: K35.33 Acute appendicitis with perforation, localized peritonitis, and gangrene, with abscess (principal); Z98.890 Other specified postprocedural states
CPT/HCPCS: 74177; Q9963; Q9967

== ENCOUNTER 2021-01-09 11:53 | Day surgery (SDC) | payer OTHER ==
[~2021-01-09] VITALS: Ht 188 cm; Wt 83.9 kg
[~2021-01-09 11:53] MED LIST changes: -GASTROGRAFIN SOLUTION 30ML (Q9963) As Ordered ONE; -ISOVUE-370 76% 100ML VIAL As Ordered ONE; +LR 1,000 ML IV ONE; +ceFAZolin SOD 2 GM in IV 1 EA IV ONE
[2021-01-09] MEDS ORDERED: MIDAZOLAM INJ 2MG/2ML VIAL (J2250 PER 1MG) As Ordered ONE (18:42)
[2021-01-09] MEDS ORDERED: LIDOCAINE 2% 100MG/5ML SDV (FOR ANES.) As Ordered ONE (18:42)
[2021-01-09] MEDS ORDERED: propofoL 200 MG/20 ML VIAL As Ordered ONE (18:42)
[2021-01-09] MEDS ORDERED: ROCURONIUM BROMIDE 50 MG/5 ML VIAL As Ordered ONE ×2 (18:42→20:23)
[2021-01-09] MEDS ORDERED: fentaNYL 100 MCG/2 ML INJECTION As Ordered ONE ×3 (18:42→21:07)
[2021-01-09] MEDS ORDERED: dexameTHASONE 4 MG/ML 1ML VIAL (J1100 PER 1MG) As Ordered ONE (18:43)
[2021-01-09] MEDS ORDERED: ONDANSETRON 4MG/2ML VIAL As Ordered ONE (18:43)
[2021-01-09] MEDS ORDERED: LIDOCAINE 1% SDV 30ML VIAL As Ordered ONE (19:40)
[2021-01-09] MEDS ORDERED: BUPIVACAINE HCL 0.25% 30ML VIAL As Ordered ONE (19:40)
[2021-01-09] MEDS ORDERED: ACETAMINOPHEN 1000MG 100ML IV BTL (OFIRMEV) (J0131 PER 10MG) As Ordered ONE (19:50)
[2021-01-09] MEDS ORDERED: METOCLOPRAMIDE INJ 10MG/2ML VIAL (J2765 PER 1) As Ordered ONE (20:03)
[2021-01-09] MEDS ORDERED: SUGAMMADEX SODIUM 500 MG/5 ML VIAL (BRIDION) As Ordered ONE (20:08)
[2021-01-09] MEDS ORDERED: KETOROLAC 60MG 2ML VIAL As Ordered ONE (20:08)
[2021-01-09] MEDS ORDERED: fentaNYL 100 MCG/2 ML INJECTION IV PRN (22:00)
[2021-01-09] MEDS ORDERED: LR 1,000 ML IV SCH (22:00)
[2021-01-09] MEDS ORDERED: oxyCODONE 5MG TAB PO PRN (22:00)
[2021-01-09] MEDS ORDERED: ONDANSETRON 4MG/2ML VIAL IV PRN (22:00)
[2021-01-09] MEDS ORDERED: NORCO, ANEXSIA 5/325MG TABLET (HYDROcodone/ACETAMINOPHEN) PO PRN ×2 (22:35)
[2021-01-09] MEDS ORDERED: KETOROLAC 30 MG/ML 1ML VIAL IV PRN (22:35)
[2021-01-09 23:20] VITALS: BP 137/70
== END 2021-01-09 23:20 | disposition home or self-care (01) ==
LOC: M SDC 11:53
PROVIDERS: ATTEND Surgery
DX: K36 Other appendicitis (principal)
CPT/HCPCS: 44970; 88304; J0131; J0690; J1100; J1885; J2250; J2405; J2765; J3010

== ENCOUNTER → 2022-05-16 | Outpatient (CLI) | payer OTHER ==
[~2022-05-16] MED LIST changes: -LR 1,000 ML IV ONE; -ceFAZolin SOD 2 GM in IV 1 EA IV ONE
== END ==
LOC: M WUC 14:28
PROVIDERS: ATTEND Internal Medicine Rheumatology
DX: R76.8 Other specified abnormal immunological findings in serum (principal); M25.50 Pain in unspecified joint

== ENCOUNTER → 2022-05-16 | Outpatient (REF) | payer OTHER ==
[2022-05-16 16:56] LABS: COMPLEMENT C3 148.1 MG/DL (82.0-160.0); COMPLEMENT C4 40.6 MG/DL (12-36)
[2022-05-16 16:59] LABS: ALBUMIN 4.3 G/DL (3.2-5.2); ALKALINE PHOSPHATASE 73 U/L (46-116); ALT/SGPT 123 U/L (7.0-40); AST/SGOT 381 U/L (<34); BILIRUBIN,TOTAL 0.7 MG/DL (0.3-1.2); BLOOD UREA NITROGEN 15 MG/DL (9-23); CALCIUM LEVEL 9.4 MG/DL (8.5-10.1); CARBON DIOXIDE LEVEL 31 MMOL/L (20-31); CHLORIDE LEVEL 101 MMOL/L (98-107); CREATININE FOR GFR 1.19 MG/DL (0.70-1.30); GLOMERULAR FILTRATION RATE > 60.0 (>60); GLUCOSE, FASTING 73 MG/DL (60-100); POTASSIUM SERUM 3.6 MMOL/L (3.5-5.1); SODIUM LEVEL 137 MMOL/L (136-145); TOTAL PROTEIN 7.6 G/DL (5.7-8.2)
[2022-05-16 17:11] LABS: AMORPHOUS SEDIMENT MODERATE (NEGATIVE); APPEARANCE, URINE TURBID (CLEAR); BACTERIA, URINE AUTO NEGATIVE (NEGATIVE); BILIRUBIN, URINE AUTO NEGATIVE (NEGATIVE); BLOOD, URINE BLOOD NEGATIVE (NEGATIVE); COLOR, URINE YELLOW (YELLOW); GLUCOSE, URINE (UA) AUTO NEGATIVE (NEGATIVE); KETONE, URINE AUTO TRACE mg/dL (NEGATIVE); LEUKOCYTE ESTERASE, URINE AUTO NEGATIVE (NEGATIVE); NITRITE, URINE AUTO NEGATIVE (NEGATIVE); PROTEIN, URINE AUTO NEGATIVE (NEGATIVE); RBC, URINE AUTO 1 /HPF (0-3); SPECIFIC GRAVITY URINE AUTO 1.031 (1.002-1.035); SQUAMOUS EPITHELIAL CELL UR AU 0 /HPF (0-6); UROBILINOGEN, URINE AUTO 0.2 mg/dL (0.0-2.0); WBC, URINE AUTO 0 /HPF (0-3)
[2022-05-16 17:22] LABS: BASO % 0.4 % (0.0-1.0); EOS % 0.4 % (0.0-3.0); HEMATOCRIT 45.9 % (42.0-52.0); HEMOGLOBIN 14.5 g/dl (13.5-17.5); LYMPH # 1.9 10^3/uL (1.5-5.0); LYMPH % 43.6 % (24.0-44.0); MEAN CORPUSCULAR HEMOGLOBIN 27.2 pg (27.0-33.0); MEAN CORPUSCULAR HGB CONC 31.6 g/dl (32.0-36.5); MONO # 0.3 10^3/uL (0.0-0.8); MONO % 6.1 % (2.0-8.0); NEUTROPHILS # 2.2 10^3/uL (1.5-8.5); NEUTROPHILS % 49.3 % (36.0-66.0); PLATELET COUNT, AUTOMATED 290 10^3/uL (150-450); RED BLOOD COUNT 5.34 10^6/uL (4.30-6.10); WHITE BLOOD COUNT 4.5 10^3/uL (4.0-10.0)
[2022-05-16 17:25] LABS: TOTAL PROTEIN,RANDOM URINE 13.1 MG/DL (0.0-14.0)
[2022-05-16 17:43] LABS: CREATININE,RANDOM URINE 378.2 MG/DL
[2022-05-16 18:10] LABS: ERYTHROCYTE SEDIMENTATION RATE 18 mm/hr (0-15)
[2022-05-23 20:08] LABS: COMPLEMENT TOTAL (CH50) 56 U/mL (>41); HLA-B27 Negative (.)
== END ==
LOC: M SFHCRHEU 13:13
PROVIDERS: ATTEND Internal Medicine Rheumatology
DX: R76.8 Other specified abnormal immunological findings in serum (principal); M25.50 Pain in unspecified joint
CPT/HCPCS: 36415; 72202; 73120; 73630; 80053; 81001; 81374; 82570; 84156; 85025; 85613; 85652; 85732; 86140; 86160; 86162; G0463

== ENCOUNTER → 2023-12-08 | Outpatient (CLI) | payer OTHER | LOC: M RAD 13:23 | PROVIDERS: ATTEND Physician Assistant | DX: M79.645 Pain in left finger(s) (principal) ==

== ENCOUNTER → 2024-12-03 | Outpatient (REF) | payer OTHER ==
[2024-12-03 15:48] LABS: BASO # 0.0 10^3/uL (0.0-0.2); BASO % 0.9 % (0.0-1.0); EOS # 0.1 10^3/uL (0.0-0.5); EOS % 1.6 % (0.0-3.0); LYMPH # 1.7 10^3/uL (1.5-5.0); LYMPH % 51.6 % (24.0-44.0); MONO # 0.3 10^3/uL (0.0-0.8); MONO % 8.4 % (2.0-8.0); NEUTROPHILS # 1.2 10^3/uL (1.5-8.5); NEUTROPHILS % 37.2 % (36.0-66.0); PLATELET COUNT, AUTOMATED 291 10^3/uL (150-450)
[2024-12-03 15:58] LABS: ERYTHROCYTE SEDIMENTATION RATE 17 mm/hr (0-15)
[2024-12-03 16:11] LABS: APPEARANCE, URINE CLEAR (CLEAR); BACTERIA, URINE AUTO NEGATIVE (NEGATIVE); BILIRUBIN, URINE AUTO NEGATIVE (NEGATIVE); BLOOD, URINE BLOOD NEGATIVE (NEGATIVE); GLUCOSE, URINE (UA) AUTO NEGATIVE (NEGATIVE); KETONE, URINE AUTO NEGATIVE (NEGATIVE); LEUKOCYTE ESTERASE, URINE AUTO NEGATIVE (NEGATIVE); NITRITE, URINE AUTO NEGATIVE (NEGATIVE); PROTEIN, URINE AUTO NEGATIVE (NEGATIVE); RBC, URINE AUTO 0 /HPF (0-3); SPECIFIC GRAVITY URINE AUTO 1.021 (1.002-1.035); SQUAMOUS EPITHELIAL CELL UR AU 0 /HPF (0-6); UROBILINOGEN, URINE AUTO 0.2 mg/dL (0.0-2.0); WBC, URINE AUTO 1 /HPF (0-3)
[2024-12-03 16:14] LABS: ALT/SGPT 19 U/L (7.0-40); AST/SGOT 19 U/L (<34); C REACTIVE PROTEIN QUANTITATIV < 0.50 MG/DL (<1.0); CALCIUM LEVEL 9.8 MG/DL (8.5-10.1); CARBON DIOXIDE LEVEL 30 MMOL/L (20-31); CHLORIDE LEVEL 103 MMOL/L (98-107); CREATININE FOR GFR 1.50 MG/DL (0.70-1.30); GLOMERULAR FILTRATION RATE 64.6 (>60); POTASSIUM SERUM 4.6 MMOL/L (3.5-5.1); SODIUM LEVEL 141 MMOL/L (136-145)
[2024-12-03 16:15] LABS: COMPLEMENT C4 36.6 MG/DL (12-36)
[2024-12-03 16:37] LABS: TOTAL PROTEIN,RANDOM URINE 13.9 MG/DL (0.0-14.0)
== END ==
LOC: M SFHCRHEU 09:27
PROVIDERS: ATTEND Internal Medicine Rheumatology
DX: R76.89 Other specified abnormal immunological findings in serum (principal); M25.50 Pain in unspecified joint; R79.89 Other specified abnormal findings of blood chemistry